=== PATIENT | female | born 1950 | race African-American/Black ===

== ENCOUNTER 2020-08-07 10:42 | Inpatient (IN) | payer MEDICARE, MEDICAID ==
[~2020-08-07] VITALS: Ht 167.6 cm; Wt 93.0 kg
[2020-08-07] MEDS ORDERED: IPRATROPIUM BROMIDE (0.02%) 0.5MG/2.5ML NEB HHN STA (10:52)
[2020-08-07] MEDS ORDERED: METHYLPREDNISOLONE SOD SUCC 125 MG/2 ML VIAL IV STA (10:52)
[2020-08-07] MEDS ORDERED: ALBUTEROL (0.083%) 2.5MG/3ML NEB HHN STA (10:52)
[2020-08-07] MEDS ORDERED: FAMOTIDINE 20MG/2ML VIAL IV ONE (11:00)
[2020-08-07 11:30] LABS: BG BASE EXCESS -3.4 mmol/L (-2.0-2.0); BG CARBOXYHEMOGLOBIN 0.4 % (0.5-1.5); BG DEOXYHEMOGLOBIN 0.7 % (0.0-5.0); BG FRACTION INSPIRED OXYGEN 40; BG HCO3 ACT 19.7 mmol/L (22.0-26.0); BG METHEMOGLOBIN 0.3 % (0.0-1.5); BG OXYGEN SATURATION 99.3 % (92.0-98.5); BG OXYHEMOGLOBIN 98.6 % (94.0-97.0); BG PCO2 30.5 mmHg (35.0-45.0); BG PH 7.429 (7.350-7.450); BG PO2 185.9 mmHg (75.0-100.0); BG SAMPLE SITE RIGHT RADIAL; BG TOTAL HEMOGLOBIN 14.4 g/dL (12.0-18.0); BG VENT MODE MASK - BIPAP
[2020-08-07 11:33] LABS: BASOPHILS % 0.7 % (0.0-2.0); CHLORIDE 107 mEq/L (98-107); EOSINOPHILS % 1.1 % (0.0-5.0); HEMATOCRIT. 42.3 % (36.0-48.0); HEMOGLOBIN. 14.1 g/dL (12.0-16.0); LYMPHOCYTES % 52.5 % (20.0-50.0); MEAN CORPUSCULAR VOLUME 90.3 fL (81.0-99.0); MEAN PLATELET VOLUME 7.8 fl (7.4-10.4); MONOCYTES % 6.4 % (2.0-8.0); NEUTROPHILS % 39.3 % (40.0-76.0); PLATELET 228 x1000/uL (130-400); RED BLOOD CELL COUNT 4.68 mill/uL (4.2-5.4); RED CELL DISTRIBUTION WIDTH 15.3 % (11.6-14.6)
[2020-08-07] MEDS ORDERED: IPRATROPIUM/ALBUTEROL 0.5-3(2.5)MG/3ML NEB HHN PRN (15:15)
[2020-08-07] MEDS: METHYLPREDNISOLONE SOD SUCC 125 MG/2 ML VIAL IV SCH (18:52)
[2020-08-07] MEDS ORDERED: CLONIDINE 0.1MG TABLET PO PRN (19:00)
[2020-08-07] MEDS ORDERED: DIPHENHYDRAMINE 50MG/ML VIAL IV PRN (19:00)
[2020-08-07] MEDS ORDERED: GUAIFENESIN 200MG/10ML SUGAR FREE UDC PO PRN (19:00)
[2020-08-07] MEDS ORDERED: ACETAMINOPHEN 325MG TABLET PO PRN (19:00)
[2020-08-07] MEDS ORDERED: ONDANSETRON HCL 4MG/2ML INJ IV PRN (19:00)
[2020-08-07] MEDS ORDERED: IPRATROPIUM/ALBUTEROL 0.5-3(2.5)MG/3ML NEB NEB PRN (19:00)
[2020-08-07] MEDS ORDERED: ENOXAPARIN 40MG/0.4ML SYR SUBCUT SCH (20:00)
[2020-08-07 21:30] VITALS: BP 126/69
[2020-08-07 22:00] VITALS: BP 126/69
[2020-08-07] MEDS: ZOLPIDEM TARTRATE 5MG TABLET PO PRN (22:02)
[2020-08-07] MEDS: SODIUM CHLORIDE 0.9% INJ 3ML FLUSH IVF SCH (22:05)
[2020-08-08] VITALS (12 sets, daily range): BP systolic 0–145; BP diastolic 0–85
[2020-08-08] MEDS: METHYLPREDNISOLONE SOD SUCC 125 MG/2 ML VIAL IV SCH ×2 (00:28→05:16)
[2020-08-08] MEDS: IPRATROPIUM/ALBUTEROL 0.5-3(2.5)MG/3ML NEB HHN SCH ×4 (01:03→21:00)
[2020-08-08] MEDS: SODIUM CHLORIDE 0.9% INJ 3ML FLUSH IVF SCH ×3 (05:16→21:54)
[2020-08-08] MEDS: LISINOPRIL 10MG TABLET PO SCH (08:18)
[2020-08-08] MEDS: AMLODIPINE 5MG TABLET PO SCH (08:19)
[2020-08-08] MEDS: FUROSEMIDE 40MG/4ML VIAL IVP SCH (16:19)
[2020-08-08] MEDS ORDERED: METHYLPREDNISOLONE SOD SUCC 125 MG/2 ML VIAL IV SCH (21:00)
[2020-08-08] MEDS: ZOLPIDEM TARTRATE 5MG TABLET PO PRN (21:53)
[2020-08-08] MEDS: ENOXAPARIN 30MG/0.3ML SYR SUBCUT SCH (21:55)
[2020-08-08] MEDS: ACETAMINOPHEN 325MG TABLET PO PRN (23:52)
[2020-08-09] VITALS: BP 0/0
[2020-08-09 01:36] VITALS: BP 0/0
[2020-08-09] MEDS: IPRATROPIUM/ALBUTEROL 0.5-3(2.5)MG/3ML NEB HHN SCH ×5 (02:20→20:37)
[2020-08-09 04:00] VITALS: BP 0/0
[2020-08-09 06:00] VITALS: BP 0/0
[2020-08-09] MEDS: SODIUM CHLORIDE 0.9% INJ 3ML FLUSH IVF SCH ×3 (06:02→20:32)
[2020-08-09] MEDS: ENOXAPARIN 30MG/0.3ML SYR SUBCUT SCH ×2 (11:05→20:32)
[2020-08-09] MEDS: AMLODIPINE 5MG TABLET PO SCH (11:20)
[2020-08-09] MEDS: FUROSEMIDE 40MG/4ML VIAL IVP SCH (11:20)
[2020-08-09] MEDS: LISINOPRIL 10MG TABLET PO SCH (11:20)
[2020-08-09] MEDS: METHYLPREDNISOLONE SOD SUCC 125 MG/2 ML VIAL IV SCH ×3 (14:12→23:35)
[2020-08-09 20:00] VITALS: BP 0/0
[2020-08-09 22:00] VITALS: BP 0/0
[2020-08-09] MEDS: ZOLPIDEM TARTRATE 5MG TABLET PO PRN (23:35)
[2020-08-10] VITALS (11 sets, daily range): BP systolic 0–113; BP diastolic 0–67
[2020-08-10] MEDS: IPRATROPIUM/ALBUTEROL 0.5-3(2.5)MG/3ML NEB HHN SCH ×3 (03:02→20:46)
[2020-08-10] MEDS: METHYLPREDNISOLONE SOD SUCC 125 MG/2 ML VIAL IV SCH ×4 (06:22→23:57)
[2020-08-10] MEDS: SODIUM CHLORIDE 0.9% INJ 3ML FLUSH IVF SCH ×3 (06:22→22:35)
[2020-08-10] MEDS: LISINOPRIL 10MG TABLET PO SCH (08:05)
[2020-08-10] MEDS: FUROSEMIDE 40MG/4ML VIAL IVP SCH (08:05)
[2020-08-10] MEDS: ENOXAPARIN 30MG/0.3ML SYR SUBCUT SCH ×2 (08:05→21:08)
[2020-08-10] MEDS: AMLODIPINE 5MG TABLET PO SCH (08:06)
[2020-08-10] MEDS: ZOLPIDEM TARTRATE 5MG TABLET PO PRN (22:34)
[2020-08-10] MEDS: ACETAMINOPHEN 325MG TABLET PO PRN (22:35)
[2020-08-11] VITALS (12 sets, daily range): BP systolic 84–139; BP diastolic 51–98
[2020-08-11] MEDS: IPRATROPIUM/ALBUTEROL 0.5-3(2.5)MG/3ML NEB HHN SCH ×4 (02:36→20:24)
[2020-08-11] MEDS: METHYLPREDNISOLONE SOD SUCC 125 MG/2 ML VIAL IV SCH ×3 (05:40→22:29)
[2020-08-11] MEDS: SODIUM CHLORIDE 0.9% INJ 3ML FLUSH IVF SCH ×3 (05:41→22:00)
[2020-08-11] MEDS: LISINOPRIL 10MG TABLET PO SCH (09:00)
[2020-08-11] MEDS: AMLODIPINE 5MG TABLET PO SCH (09:00)
[2020-08-11] MEDS: FUROSEMIDE 40MG/4ML VIAL IVP SCH (09:19)
[2020-08-11] MEDS: ENOXAPARIN 30MG/0.3ML SYR SUBCUT SCH ×2 (09:20→20:06)
[2020-08-11] MEDS: ACETAMINOPHEN 325MG TABLET PO PRN ×2 (12:24→20:07)
[2020-08-11] MEDS: LORATADINE 10MG TABLET PO SCH (16:14)
[2020-08-11] MEDS: ZOLPIDEM TARTRATE 5MG TABLET PO PRN (22:29)
[2020-08-12] VITALS (12 sets, daily range): BP systolic 96–120; BP diastolic 36–82
[2020-08-12] MEDS: IPRATROPIUM/ALBUTEROL 0.5-3(2.5)MG/3ML NEB HHN SCH ×4 (02:00→20:40)
[2020-08-12] MEDS: SODIUM CHLORIDE 0.9% INJ 3ML FLUSH IVF SCH ×3 (06:00→22:00)
[2020-08-12] MEDS: METHYLPREDNISOLONE SOD SUCC 125 MG/2 ML VIAL IV SCH ×2 (06:30→20:28)
[2020-08-12] MEDS: FUROSEMIDE 40MG/4ML VIAL IVP SCH (09:37)
[2020-08-12] MEDS: AMLODIPINE 5MG TABLET PO SCH (09:37)
[2020-08-12] MEDS: LISINOPRIL 10MG TABLET PO SCH (09:38)
[2020-08-12] MEDS: LORATADINE 10MG TABLET PO SCH (09:38)
[2020-08-12] MEDS: ENOXAPARIN 30MG/0.3ML SYR SUBCUT SCH ×2 (09:39→20:28)
[2020-08-12] MEDS ORDERED: MAGNESIUM HYDROXIDE 400MG/5ML 30ML UDC PO PRN (17:15)
[2020-08-12] MEDS: DOCUSATE SODIUM 100MG CAPSULE PO SCH (20:27)
[2020-08-12] MEDS ORDERED: ZOLPIDEM TARTRATE 5MG TABLET PO PRN (23:00)
[2020-08-13] VITALS (7 sets, daily range): BP systolic 98–127; BP diastolic 58–83
[2020-08-13] MEDS: IPRATROPIUM/ALBUTEROL 0.5-3(2.5)MG/3ML NEB HHN SCH ×2 (01:33→08:20)
[2020-08-13] MEDS: SODIUM CHLORIDE 0.9% INJ 3ML FLUSH IVF SCH (05:56)
[2020-08-13] MEDS: METHYLPREDNISOLONE SOD SUCC 125 MG/2 ML VIAL IV SCH (10:07)
[2020-08-13] MEDS: FUROSEMIDE 40MG/4ML VIAL IVP SCH (10:07)
[2020-08-13] MEDS: DOCUSATE SODIUM 100MG CAPSULE PO SCH (10:07)
[2020-08-13] MEDS: LORATADINE 10MG TABLET PO SCH (10:08)
[2020-08-13] MEDS: LISINOPRIL 10MG TABLET PO SCH (10:08)
[2020-08-13] MEDS: ENOXAPARIN 30MG/0.3ML SYR SUBCUT SCH (10:08)
[2020-08-13] MEDS: AMLODIPINE 5MG TABLET PO SCH (10:08)
[2020-08-13] MEDS: ACETAMINOPHEN 325MG TABLET PO PRN (10:26)
== END 2020-08-13 14:17 | disposition home or self-care (01) | DRG 189 ==
LOC: ER 10:42 → 5EST 12:29 → EDBEDREQTM 12:34 → EDBEDREQSVC 12:34 → EDBEDREQ 12:34 → ENRESERV 14:06 → CANRESERV 14:06 → EDBEDREQSVC 15:12 → ENRESERV 19:23 → 5EST 20:35
PROVIDERS: ADMIT Internal Medicine; ATTEND Internal Medicine
PROC: 5A09357 Assistance with Respiratory Ventilation, Less than 24 Consecutive Hours, Continuous Positive Airway Pressure (ICD-10-PCS; principal; 2020-08-07)
PROC: 5A09357 Assistance with Respiratory Ventilation, Less than 24 Consecutive Hours, Continuous Positive Airway Pressure (ICD-10-PCS; 2020-08-09)
PROC: 5A09357 Assistance with Respiratory Ventilation, Less than 24 Consecutive Hours, Continuous Positive Airway Pressure (ICD-10-PCS; 2020-08-10)
PROC: 5A09357 Assistance with Respiratory Ventilation, Less than 24 Consecutive Hours, Continuous Positive Airway Pressure (ICD-10-PCS; 2020-08-11)
PROC: 5A09357 Assistance with Respiratory Ventilation, Less than 24 Consecutive Hours, Continuous Positive Airway Pressure (ICD-10-PCS; 2020-08-12)
DX: J96.01 Acute respiratory failure with hypoxia (principal); J84.9 Interstitial pulmonary disease, unspecified; J45.901 Unspecified asthma with (acute) exacerbation; T50.8X5A Adverse effect of diagnostic agents, initial encounter; G47.33 Obstructive sleep apnea (adult) (pediatric); I50.9 Heart failure, unspecified; Z20.822 Contact with and (suspected) exposure to COVID-19; T49.0X5A Adverse effect of local antifungal, anti-infective and anti-inflammatory drugs, initial encounter; I11.0 Hypertensive heart disease with heart failure; Z99.81 Dependence on supplemental oxygen; Z91.041 Radiographic dye allergy status; Y92.89 Other specified places as the place of occurrence of the external cause
CPT/HCPCS: 36415; 36600; 71045; 80053; 82375; 82805; 83880; 84484; 85025; 87426; 92950; 93005; 94640; 94644; 94660; 99291; J1650; J1940; J2405; J2930; J3490